=== PATIENT | female | born 1970 | race Two or more races ===

== ENCOUNTER 2017-09-03 19:16 | Emergency (ER) | payer MEDICAID ==
[~2017-09-03] VITALS: Ht 152.4 cm; Wt 53.1 kg
[2017-09-03 19:36] VITALS: BP 102/34
== END 2017-09-03 20:04 | disposition home or self-care (01) ==
LOC: ER 19:19
DX: B02.9 Zoster without complications (principal)
CPT/HCPCS: 99283; A4606; Z7610